=== PATIENT | female | born 1960 | race Caucasian/White ===

== ENCOUNTER → 2016-05-05 | Outpatient (CLI) | payer BC ==
--- NOTE | 2016-05-06 07:13 | CT ---
EXAMINATION TYPE: CT sinus wo con DATE OF EXAM: 05/05/2016 6:55 PM COMPARISON: NONE HISTORY: Headaches and sinus pressure x 3 months. Chronic sinusitis per order. CT DLP: 682.00 mGycm. Automated Exposure Control for Dose Reduction was Utilized. TECHNIQUE: CT scan of the sinuses is performed without contrast, axial images are obtained, coronal r eformatted images are also reviewed. FINDINGS: The paranasal sinuses including the frontal, ethmoid, sphenoid, and maxillary sinuses bila terally are well-aerated without abnormal opacification. The ostiomeatal complex is patent bilateral ly on the coronal images. Visualized portion of mastoid air cells show no abnormal opacification. The globes are intact bilate rally. Persistent anterior metopic suture is incidentally noted. Patchy soft tissue density right ex ternal auditory canal likely reflects cerumen. IMPRESSION: The paranasal sinuses are clear and the ostiomeatal complex is patent bilaterally.
== END | disposition home or self-care (01) ==
LOC: RADCTMAIN 18:33
PROVIDERS: ATTEND Family Medicine
DX: J32.9 Chronic sinusitis, unspecified (principal)
CPT/HCPCS: 70486

== ENCOUNTER → 2018-12-21 | Outpatient (CLI) | payer BC | END | disposition home or self-care (01) | LOC: LABPAT 09:07 | PROVIDERS: ATTEND Orthopaedic Surgery | DX: Z01.812 Encounter for preprocedural laboratory examination (principal) | CPT/HCPCS: 87070 ==

== ENCOUNTER 2019-01-24 05:45 | Day surgery (SDC) | payer BC ==
[2019-01-18 15:36] VITALS: BMI 33.6
--- NOTE | 2019-01-23 15:10 | HP ---
HISTORY AND PHYSICAL REASON FOR ADMISSION: Surgery is scheduled for 01/24/2019. HISTORY OF PRESENT ILLNESS: Camille Ribeiro is a 58-year-old patient seen with symptomatic right knee osteoarthritis. We discussed options for treatment. She elected to proceed with right total knee arthroplasty. Consent regarding the procedure was obtained. Medical clearance was provided by Chris Kelley. PAST MEDICAL HISTORY: Allergic rhinitis. PAST SURGICAL HISTORY: Right knee arthroscopy. DAILY MEDICATIONS: Zyrtec. ALLERGIES: NONE. SOCIAL HISTORY: She denies current tobacco use. PHYSICAL EXAMINATION: Evaluation of her right knee: Her range of motion is -2 to 95. She has a mild effusion. Tenderness medial and lateral joint lines. Crepitus along the medial, lateral, and patellofemoral compartments. Ligaments are stable. Hip rotation is without pain. Her distal neurovascular examination is intact. RADIOGRAPHS: Radiographs of the right knee revealed moderate to severe medial and lateral as well as patellofemoral compartment osteoarthritis. IMPRESSION: Right knee osteoarthritis. PLAN: Right total knee arthroplasty. MMODL / IJN: [id number] /
[~2019-01-24 05:45] MED LIST: ACETAMINOPHEN TAB 500 MG TAB PO ONE; MELOXICAM 7.5 MG TAB PO ONE; TRANEXAMIC ACID 1,000 MG in SODIUM CHLORIDE 0.9% 100 ML IVPB ONE
[2019-01-24] MEDS ORDERED: LACTATED RINGERS 1,000 ML IV SCH (05:52)
[2019-01-24] MEDS ORDERED: ONDANSETRON 4 MG/2 ML VIAL IVP PRN ×2 (05:52→09:27)
[2019-01-24] MEDS ORDERED: LIDOCAINE 1% 20 ML VIAL (10MG/ML) FOR IV START INTRADERMA ONE (07:01)
[2019-01-24] MEDS ORDERED: MIDAZOLAM 2 MG/2 ML VIAL IVP ONE (07:15)
[2019-01-24] MEDS: fentaNYL (PF) 50 MCG/ML 2 ML AMP IVP ONE ×3 (07:15→10:10)
[2019-01-24] MEDS ORDERED: KETAMINE 10 MG/ML 20 ML VIAL ONE (07:23)
[2019-01-24] MEDS ORDERED: MIDAZOLAM 2 MG/2 ML VIAL ONE (07:23)
[2019-01-24] MEDS ORDERED: PROPOFOL 10 MG/ML 20 ML VIAL IV ONE (07:23)
[2019-01-24] MEDS ORDERED: GLYCOPYRROLATE 0.2 MG/ML 2 ML VIAL ONE (07:23)
[2019-01-24] MEDS ORDERED: TRANEXAMIC ACID 1,000 MG/10 ML VIAL ONE (07:23)
[2019-01-24] MEDS ORDERED: fentaNYL (PF) 50 MCG/ML 2 ML AMP ONE (07:23)
[2019-01-24] MEDS ORDERED: HYDROmorphone (PF) 1 MG/ML ONE (07:23)
[2019-01-24] MEDS ORDERED: SODIUM CHLORIDE 0.9% 100 ML BAG ONE (07:23)
[2019-01-24] MEDS ORDERED: NEOSTIGMINE 1 MG/ML 10 ML VIAL ONE (07:23)
[2019-01-24] MEDS ORDERED: diphenhydrAMINE 50 MG/ML 1 ML VIAL ONE (07:23)
[2019-01-24] MEDS ORDERED: LIDOCAINE 1% INJ 10MG/ML (20 ML MDV) ONE (07:23)
[2019-01-24] MEDS ORDERED: ROCURONIUM BROMIDE 10 MG/ML 10 ML VIAL IV ONE (07:23)
[2019-01-24] MEDS ORDERED: SUCCINYLCHOLINE CHLORIDE 100 MG/5 ML SYR IV ONE (07:23)
[2019-01-24] MEDS ORDERED: ROPIVACAINE 0.2%-NS ON-Q PUMP 1,090 MG, EMPTY PAIN BALL 1 EACH MISCELLANE PRN (07:37)
--- NOTE | 2019-01-24 07:38 | P.ANPRN ---
Procedure Note - Anesthesia - Nerve Block Performed Right Adductor Canal Infusion Time Out Performed: Yes Date of Procedure: 01/24/19 Procedure Start Time: : Procedure Stop Time: Location of Patient Procedure: PreOp Indication: Acute Post-Operative Pain, Requested by Surgeon Specifically requested for management of pain by DrAshley: Alex Maloney Sedation Type: Sedate with meaningful contact maintained Preparation: Sterile Prep Position: Supine Catheter Depth at Skin (cm): 8 Catheter: Indwelling Needle Types: Pajunk Needle Gauge: 18 Ultrasound used to visualize needle placement: Yes Ultrasound used to observe medication spread: Yes Injectate: 0.5% Ropivacaine (see comment for volume) (20 cc) Blood Aspirated: No Pain Paresthesia on Injection Noted: No Resistance on Injection: Normal Image Stored and Saved: Yes Events: Uneventful and Well Tolerated
[2019-01-24] MEDS ORDERED: ceFAZolin 3,000 MG in SODIUM CHLORIDE 0.9% IRRIGATIO 3,000 ML IRRIGATION ONE (07:39)
[2019-01-24] MEDS: ROPIVACAINE 246.25 MG, EPINEPHrine 0.5 MG, KETOROLAC 30 MG, cloNIDine HCL/PF 80 MCG, WA... MISCELLANE ONE ×10 (08:02→08:13)
[2019-01-24] MEDS ORDERED: LACTATED RINGERS 1,000 ML IV ONE ×2 (08:45→09:27)
[2019-01-24] MEDS ORDERED: HYDROcodone/APAP 5-325MG 1 EACH TAB PO PRN ×2 (09:27)
[2019-01-24] MEDS ORDERED: NALOXONE 0.4 MG/ML 1 ML VIAL IV PRN (09:27)
[2019-01-24] MEDS ORDERED: HYDROmorphone 0.5 MG/0.5 ML SYRINGE IVP PRN ×2 (09:27)
[2019-01-24] MEDS ORDERED: HYDROmorphone 1 MG/ML 1 ML SYRINGE IVP PRN (09:27)
--- NOTE | 2019-01-24 09:27 | P.OP ---
Date of Procedure: 01/24/19 Preoperative Diagnosis: Right knee osteoarthritis Postoperative Diagnosis: Right knee osteoarthritis Procedure(s) Performed: Right total knee arthroplasty Implants: 1. Depuy attune size 6 narrow right cemented cruciate-retaining femur 2. Depuy attune size 5 right cemented tibial baseplate 3. Depuy attune size 6 fixed bearing cruciate retaining 5 mm polyethylene tibial insert 4. Depuy attune 35 mm all polyethylene cemented patella Anesthesia: GETA, regional (Adductor canal catheter) Surgeon: Alex Maloney Box Office Agent #1: Rodo Burnette Estimated Blood Loss (ml): 20 Pathology: other (Bone) Condition: stable Disposition: PACU Indications for Procedure: 58-year-old patient seen with symptomatic right knee osteoarthritis. After treatment options were discussed, she elected to proceed with total knee arthroplasty. Operative Findings: See description of procedure Description of Procedure: Patient was taken to the operative suite after having an adductor canal catheter placed by the department of anesthesia. Patient underwent a general anesthetic by the department of anesthesia. Patient was given preoperative IV intake antibiotics and TXA. A well-padded tourniquet was placed about the right lower extremity. The lower extremity was then prepped and draped in the normal sterile orthopedic fashion. The extremity was elevated, a tourniquet was insufflated to 300. A standard anterior incision was made sharply through skin. Dissection was taken down through the subcutaneous soft tissues down to the extensor mechanism. A medial arthrotomy was performed, patella was everted and knee was flexed. There was advanced osteoarthritis noted. I introduced my distal intramedullary femoral drill. I then introduced the distal femoral cutting jig. Jeremías JUAREZ secured the cutting jig with 2 pins. I held retractors in position while Jeremías JUAREZ performed the distal femoral resection through the guide area we now removed her distal femoral cutting guide. We now placed our 4-in-1 femoral cutting block and positioned and it was secured with 2 pins by Jeremías JUAREZ while I held the block in position. The distal femoral finishing was now completed. A proximal tibial cutting guide was positioned. I held the guide in the appropriate position with both hands well Jeremías JUAREZ inserted stabilizing pins into the guide. Proximal tibial cut was made. We now placed a trial femoral component into position, along with an appropriate size tibial tray and insert. We now took the knee through range of motion and had full extension good flexion and good overall soft tissue balance noted. The patella was everted and stabilized with 2 towel clips held by Jeremías JUAREZ while I performed a flush with patellar quad tendon utilizing a fresh sawblade. We templated the patella, appropriate drill holes were made. An appropriate trial patella was positioned, knee was taken through full range of motion with the patella tracking very nicely. The trial patella was removed. Drill holes were made through the femoral component. All trial components were removed after marking off the appropriate rotation of the tibia. Retractors were now positioned along the proximal tibia. An appropriate keel punch was made with the appropriate size tibial guide by myself on Jeremías JUAREZ assisted by holding retractors. At this point appropriate size implants were chosen and opened. The joint was irrigated copiously with pulse lavage mechanical irrigation. The posterior capsule was infiltrated with local analgesic. The wound was irrigated with pulse lavage mechanical irrigation. We mixed antibiotic methylmethacrylate. We placed the knee into flexion. We placed multiple retractors assisted by Jeremías JUAREZ to expose the proximal tibia. Once the methyl methacrylate was ready, the tibial component was cemented into place removing any excess methylmethacrylate form by both myself and Jeremías JUAREZ. The femoral component was cemented into place removing the removing any excess methylmethacrylate performed by both myself and Jeremías JUAREZ. We then inserted the appropriate size polyethylene tibial insert. We made sure that it was locked into position. We took the knee into full extension, and then back in a flexion making sure we had removed any excess methylmethacrylate. The patellar component was then cemented down and secured with clamp. Excess methylmethacrylate removed. We kept the knee in full extension, patellar clamp in position until methylmethacrylate had hardened. Once it had hardened the patellar clamp was removed. The knee was taken through full range of motion. The patella tracked nicely. There was good soft tissue balancing. The tourniquet was now released. Additional hemostasis was achieved via electrocautery. A second gram of TXA was given. The wound again was irrigated with pulse lavage mechanical irrigation. The superficial soft tissues were infiltrated local analgesic. The extensor mechanism was repaired with Vicryl. We checked the repair with range of motion and it was stable. The subcutaneous soft tissues were repaired with Vicryl in layers. The skin was approximated with pernio/Dermabond. Sterile dressings were applied followed by loose web roll and Johnny bandage. The patient was transferred to a bed, and taken to recovery in stable and satisfactory condition. Jeremías JUAREZ assisted with this complex procedure.
[2019-01-24] MEDS: HYDROmorphone 0.5 MG/0.5 ML SYRINGE IVP PRN ×2 (09:44→09:49)
[2019-01-24 09:51] VITALS: RESP 16; TEMP 97.6
--- NOTE | 2019-01-24 10:02 | XR ---
EXAMINATION TYPE: XR knee limited RT DATE OF EXAM: 01/24/2019 CLINICAL HISTORY: Right knee pain and arthritis status post total knee replacement. TECHNIQUE: Portable AP and crosstable lateral views of the right knee are obtained immediately posto peratively. COMPARISON: None FINDINGS: Metallic hardware from total right knee arthroplasty is seen and appears satisfactory in a lignment and position. There is evidence of recent surgery with diffuse soft tissue swelling and sub cutaneous emphysema noted. IMPRESSION: METALLIC HARDWARE FROM TOTAL RIGHT KNEE ARTHROPLASTY IS SATISFACTORY IN ALIGNMENT.
[2019-01-24] MEDS ORDERED: HYDROcodone/APAP 5-325MG 1 EACH TAB PO ONE (10:53)
[2019-01-24 14:47] VITALS: BP 104/71; PULSE 64
[2019-01-24] MEDS ORDERED: SENNOSIDES-DOCUSATE SODIUM 1 EACH TAB PO SCH (21:00)
[2019-01-25] MEDS ORDERED: MELOXICAM 7.5 MG TAB PO SCH (09:00)
== END 2019-01-24 15:19 | disposition home health service (06) ==
LOC: OR 05:45
PROVIDERS: ATTEND Orthopaedic Surgery
DX: M17.11 Unilateral primary osteoarthritis, right knee (principal); J30.9 Allergic rhinitis, unspecified; Z79.83 Long term (current) use of bisphosphonates; Z79.899 Other long term (current) drug therapy; K21.9 Gastro-esophageal reflux disease without esophagitis; F39 Unspecified mood [affective] disorder; Z79.1 Long term (current) use of non-steroidal anti-inflammatories (NSAID)
CPT/HCPCS: 27447; 97161; 64448; 84132; 88300; 73560; C1776; C1713; J2250; J0171; J1200; J2710; J0690 ×2; J2405; J2001; J3010; J1885; J1170 ×2; J2795 ×2; J0330; J2704; J0735

== ENCOUNTER 2021-10-24 09:23 | Emergency (ER) | payer BC ==
[2021-10-24 09:27] VITALS: BP 143/82; PULSE 51; RESP 16; TEMP 97.8
[2021-10-24] MEDS ORDERED: Acetaminophen-Codeine 300-30mg TAB PO STA (09:34)
--- NOTE | 2021-10-24 09:37 | ED ---
General Adult HPI - General Chief complaint: Fall Stated complaint: wrist injury Time Seen by Provider: 10/24/21 09:30 Source: patient, family, RN notes reviewed, old records reviewed Mode of arrival: ambulatory Limitations: no limitations - History of Present Illness Initial comments: This is a well-appearing 61-year-old female that presents ambulatory with her to the emergency room after a trip and fall yesterday on an outstretched right hand. She is complaining of increased pain and swelling this morning. She did take Motrin and hour before arrival. She describes the pain as throbbing. She does have full range of motion. She did not hit her head or lose consciousness. No other injuries. -: days(s) (1) Location: right, upper extremity (wrist) Radiation: non-radiation Severity scale (1-10): 8 Quality: constant, other (Throbbing) Consistency: constant Improves with: cold therapy, immobilization Associated Symptoms: denies other symptoms - Related Data Home Medications Medication Instructions Recorded Confirmed Cetirizine HCl/Pseudoephedrine 1 each PO DAILY 01/18/19 01/24/19 [Zyrtec-D Tablet] Cranberry Fruit Extract [Cranberry] 500 mg PO DAILY 01/18/19 01/18/19 FLUoxetine HCL [Sarafem] 20 mg PO QAM 01/18/19 01/18/19 Ibuprofen 800 mg PO TID PRN 01/18/19 01/18/19 Omeprazole [PriLOSEC] 20 mg PO AC-BRKFST 01/18/19 01/18/19 Turmeric Root Extract [Turmeric] 500 mg PO DAILY 01/18/19 01/18/19 Previous Rx's Medication Instructions Recorded Aspirin [Adult Low Dose Aspirin EC] 81 mg PO BID #60 tablet. 01/24/19 HYDROcodone/APAP 7.5-325MG [[place] 1 - 2 each PO Q6HR PRN #56 tab 01/24/19 7.5] traMADol HCl [Ultram] 50 mg PO Q6H PRN #28 tab 01/24/19 Ibuprofen [Motrin] 600 mg PO Q8HR PRN #30 tab 10/24/21 Allergies Allergy/AdvReac Type Severity Reaction Status Date / Time No Known Allergies Allergy Verified 10/24/21 09:27 Review of Systems ROS Statement: Those systems with pertinent positive or pertinent negative responses have been documented in the HPI. ROS Other: All systems not noted in ROS Statement are negative. Past Medical History Past Medical History: GERD/Reflux History of Any Multi-Drug Resistant Organisms: None Reported Past Surgical History: Orthopedic Surgery Additional Past Surgical History / Comment(s): knee replacement Past Psychological History: Depression Smoking Status: Never smoker Past Alcohol Use History: None Reported Past Drug Use History: None Reported General Exam Limitations: no limitations General appearance: alert, in no apparent distress Head exam: Present: atraumatic, normocephalic Eye exam: Absent: scleral icterus, conjunctival injection, periorbital swelling Neck exam: Absent: tenderness, meningismus Respiratory exam: Absent: respiratory distress, accessory muscle use Cardiovascular Exam: Present: bradycardia Extremities exam: Present: normal capillary refill Right Shoulder Exam: Present: full ROM. Absent: tenderness Upper Arm exam: Present: full ROM. Absent: tenderness Elbow exam: Present: full ROM. Absent: tenderness Forearm Wrist exam: Present: full ROM, tenderness, swelling, ecchymosis. Absent: abrasion, laceration, erythema, tenderness over anatomical snuff box, pain with axial thumb loading Hand Wrist exam: Present: full ROM Neuro motor exam: Present: wrist extension intact, thumb opposition intact, thumb IP flexion intact, thumb adduction intact, fingers 2-5 abduction intact Neurosensory exam: Present: radial nerve intact, ulnar nerve intact, median nerve intact Vascular: Present: normal capillary refill, radial pulse. Absent: vascular compromise Neurological exam: Present: alert, oriented X3, normal gait Psychiatric exam: Present: normal affect, normal mood Skin exam: Present: warm, dry, normal color. Absent: cyanosis, diaphoretic Course Vital Signs 10/24/21 09:25 Temperature 97.8 F Pulse Rate 51 L Respiratory 16 Rate Blood Pressure 143/82 O2 Sat by Pulse 100 Oximetry Procedures - Orthopedic Splinting/Casting Injury #1 Side: right Upper Extremity Injury Location: short arm Upper Extremity Immobilizer: volar splint, synthetic pre-padded splint Medical Decision Making - Medical Decision Making X-ray of the right wrist shows a distal radial fracture with suspected intra-art icular extension and shortening. There is a suspected nondisplaced right ulnar styloid process fracture. There is moderate to severe osteoarthrosis of the first metacarpal carpal joint There is no scaphoid pain on exam. Patient was placed in a short arm volar splint. She is neurovascularly intact prior to and post-splinting. She was instructed on splint care and directed to watch for any skin breakdown. She was referred to orthopedics and given Motrin for pain and a Tylenol # 3 starter pack. Patient states that she does see Dr. Maloney for orthopedic care and wishes to follow up with him. Patient's questions were answered. Case discussed with Dr. Horta. Disposition Clinical Impression: Wrist fracture, right, Fall Disposition: HOME SELF-CARE Condition: Good Instructions (If sedation given, give patient instructions): Wrist Fracture in Adults (ED), Fall Prevention (ED) Additional Instructions: Rest, ice, elevate and wear splint as applied. Take Motrin and Tylenol 3 as needed for pain. Follow-up with orthopedics this week. Return to the emergency room with any new or concerning symptoms including increased pain, numbness or pallor. Prescriptions: Ibuprofen [Motrin] 600 mg PO Q8HR PRN #30 tab PRN Reason: Pain Is patient prescribed a controlled substance at d/c from ED?: No Referrals: Chris Kelley MD [Primary Care Provider] - 1-2 days Alex Maloney DO [Doctor of Osteopathic Medicine] - 1-2 days Time of Disposition: 10:41
--- NOTE | 2021-10-24 10:02 | XR ---
EXAMINATION TYPE: XR wrist complete RT DATE OF EXAM: 10/24/2021 9:53 AM INDICATION: Patient age:Female; 61 years old; Reason for study: fall pain; COMPARISON: None TECHNIQUE: 4 views of the right wrist. Frontal, navicular, lateral, and oblique. FINDINGS: Distal right radius fracture with shortening and suspected nondisplaced ulnar styloid proce ss fracture. There is intra-articular extension of the distal radius fracture. Osteoarthrosis changes most pronounced at the first digit carpometacarpal joint. IMPRESSION: 1. Distal right radius fracture with suspected intra-articular extension and shortening. 2. Suspected nondisplaced right ulnar styloid process fracture. 3. Moderate to severe osteoarthrosis of the first metacarpal carpal joint
[2021-10-24] MEDS ORDERED: ACET/COD 300 MG/30 MG STARTER PACK 6 TAB BTL PO STA (10:41)
== END 2021-10-24 10:51 | disposition home or self-care (01) ==
LOC: EC 09:23
DX: S52.501A Unspecified fracture of the lower end of right radius, initial encounter for closed fracture (principal); K21.9 Gastro-esophageal reflux disease without esophagitis; Z79.899 Other long term (current) drug therapy; W01.0XXA Fall on same level from slipping, tripping and stumbling without subsequent striking against object, initial encounter
CPT/HCPCS: 29125; 99283

== ENCOUNTER → 2021-11-02 | Outpatient (CLI) | payer BC ==
[2021-11-02 23:16] LABS: Basophils # (A) 0.05 X 10*3/uL (0.00-0.10); Basophils % (A) 0.7 %; Eosinophils # (A) 0.13 X 10*3/uL (0.04-0.35); Eosinophils % (A) 1.7 %; HGB 12.5 g/dL (12.0-15.0); Immature Grans, Automated 0.3 %; Lymphocytes # (A) 1.44 X 10*3/uL (0.90-5.00); Lymphocytes % (A) 19.1 %; MCH 33.2 pg (27.0-32.0); MCHC 33.8 g/dL (32.0-37.0); MCV 98.1 fL (80.0-97.0); Mean Platelet Volume 10.3 fL (9.5-12.2); Monocytes % (A) 5.3 %; NRBC Per 100 WBC 0 /100 WBCS (0.0-0.0); Neutrophils # (A) 5.51 X 10*3/uL (1.80-7.70); Neutrophils % (A) 72.9 %; Platelet Count 429 X 10*3/uL (140-440); RBC 3.77 X 10*6/uL (4.10-5.20); WBC 7.55 X 10*3/uL (4.50-10.00)
== END | disposition home or self-care (01) ==
LOC: LABPAT 14:41
PROVIDERS: ATTEND Orthopaedic Surgery Hand Surgery
DX: Z01.818 Encounter for other preprocedural examination (principal); S52.571A Other intraarticular fracture of lower end of right radius, initial encounter for closed fracture; X58.XXXA Exposure to other specified factors, initial encounter
CPT/HCPCS: 85025; 93005

== ENCOUNTER → 2022-08-05 | Outpatient (CLI) | payer BC ==
[2022-08-05 10:48] LABS: Basophils # (A) 0.04 X 10*3/uL (0.00-0.10); Basophils % (A) 0.8 %; Eosinophils # (A) 0.26 X 10*3/uL (0.04-0.35); HCT 36.4 % (37.2-46.3); HGB 11.8 g/dL (12.0-15.0); Immature Grans, Automated 0.6 %; Lymphocytes # (A) 1.12 X 10*3/uL (0.90-5.00); Lymphocytes % (A) 21.6 %; MCH 32.8 pg (27.0-32.0); MCHC 32.4 g/dL (32.0-37.0); MCV 101.1 fL (80.0-97.0); Mean Platelet Volume 10.4 fL (9.5-12.2); Monocytes # (A) 0.29 X 10*3/uL (0.20-1.00); Monocytes % (A) 5.6 %; NRBC Per 100 WBC 0 /100 WBCS (0.0-0.0); Neutrophils # (A) 3.45 X 10*3/uL (1.80-7.70); Neutrophils % (A) 66.4 %; Platelet Count 383 X 10*3/uL (140-440); RDW 12.9 % (11.5-14.5); WBC 5.19 X 10*3/uL (4.50-10.00)
[2022-08-05 11:15] LABS: ALT 17 U/L (8-44); AST 19 U/L (13-35); African American GFR (CKD) 101.8 (60.0-200.0); Albumin 4.6 g/dL (3.8-4.9); Albumin/Globulin Ratio 2.23 (1.60-3.17); Alkaline Phosphatase 76 U/L (41-126); Blood Urea Nitrogen 12.9 mg/dL (9.0-27.0); Calcium 9.6 mg/dL (8.7-10.3); Carbon Dioxide 27.5 mmol/L (20.0-27.5); Chloride 100 mmol/L (96-109); Glucose 89 mg/dL (70-110); LDL Cholesterol,Calculated 129.4 mg/dL (0.0-131.0); Non-African American GFR(CKD) 87.8 (60.0-200.0); Potassium 4.5 mmol/L (3.5-5.5); Sodium 138 mmol/L (135-145); Total Protein 6.6 g/dL (6.2-8.2); VLDL Calculation 14.88 mg/dL (5.00-40.00)
== END | disposition home or self-care (01) ==
LOC: LABWHC1 07:11
PROVIDERS: ATTEND Family Medicine
DX: J30.1 Allergic rhinitis due to pollen (principal); J98.8 Other specified respiratory disorders; Z96.659 Presence of unspecified artificial knee joint
CPT/HCPCS: 36415; 80053; 80061; 84439; 84443; 85025

== ENCOUNTER → 2022-11-01 | Outpatient (CLI) | payer BC ==
--- NOTE | 2022-11-02 21:04 | CT ---
EXAMINATION TYPE: CT sinus wo con DATE OF EXAM: 11/01/2022 COMPARISON: 05/05/2016 HISTORY: Chronic maxillary sinusitis CT DLP: 459.10 mGycm CONTRAST: 0 mL of Isovue 300 The paranasal sinuses are examined in the axial plane at 2 mm thick sections. Reconstructed images i n the coronal plane were obtained. The maxillary sinuses are clear. The ethmoid air cells are clear. The sphenoid sinuses are clear. The frontal sinuses are clear. Bilateral chad bullosa are present. The septum is evaluated. There is septal deviation to the right. The ostiomeatal units are patent. IMPRESSIONS: 1. No suspicious changes for acute or chronic sinusitis. 2. Right septal deviation
== END | disposition home or self-care (01) ==
LOC: RADCTMAIN 16:20
PROVIDERS: ATTEND Otolaryngology
DX: J32.0 Chronic maxillary sinusitis (principal); J34.2 Deviated nasal septum
CPT/HCPCS: 70486

== ENCOUNTER 2023-02-15 09:40 | Day surgery (SDC) | payer BC ==
[2023-02-07 16:08] VITALS: BMI 31.8
--- NOTE | 2023-02-13 13:18 | P.HPOR ---
History of Present Illness H&P Date: 02/13/23 Subjective: This is a 62 year old female that presents today for follow up evaluation regarding a several year history of progressively worsening right base of the thumb arthritis. 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 She underwent a right distal radius open reduction internal fixation one year prior and is doing well and has no pain in the wrist. She has undergone thumb CMC steroid injections with little relief of her symptoms. She denies any recent injury or inciting event. Physical Examination: RUE: AIN/PIN/Radial/Ulnar/Median motor intact. Radial/Ulnar/Median SILT. 2+/4 Radial/Ulnar pulses palpated. 5/5 APB, 5/5 FDI. Negative Finkelsteins, Positive CMC grind, negative Durkan's compression. Imaging: X-Rays of the right wrist 3 view reviewed from x-rays taken in July of 2022 demonstrate severe degenerative changes of the thumb CMC joint. Impression: 1.) Right thumb CMC arthritis, severe. Plan: Diagnosis and treatment options were discussed with the patient. She has failed conservative treatment for her right thumb CMC arthritis. Her symptoms are interfering with her job and daily activities. She would like to go forward with a right thumb CMC basilar joint arthroplasty. Risks and benefits of surgery including bleeding, infection, damage to surrounding tissue, need for further s urgery, residual numbness were discussed and the patient wished to go forward with surgery. 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 The patient was agreeable with this plan. CC: Chris Kelley MD -Jim Oden DO Orthopedic Hand/Upper Extremity Surgeon Past Medical History Past Medical History: GERD/Reflux, Osteoarthritis (OA) Additional Past Medical History / Comment(s): environmental allergies- receives allergy shots ., History of Any Multi-Drug Resistant Organisms: None Reported Past Surgical History: Appendectomy, Joint Replacement, Tonsillectomy Additional Past Surgical History / Comment(s): RT knee replacement, right wrist fx with surgery. COLONOSCOPY Past Anesthesia/Blood Transfusion Reactions: Previous Problems w/ Anesthesia, Postoperative Nausea & Vomiting (PONV) Past Psychological History: No Psychological Hx Reported Smoking Status: Never smoker Past Alcohol Use History: Rare Past Drug Use History: None Reported - Past Family History Mother Family Medical History: Cancer Brother(s) Family Medical History: Cancer Additional Family Medical History / Comment(s): back and lung cancer Medications and Allergies Home Medications Medication Instructions Recorded Confirmed Type Cetirizine HCl/Pseudoephedrine 1 each PO DAILY 01/18/19 02/07/23 History [Zyrtec-D Tablet] Ibuprofen 800 mg PO TID PRN 01/18/19 02/07/23 History Omeprazole [PriLOSEC] 20 mg PO AC-BRKFST 01/18/19 02/07/23 History Montelukast [Singulair] 10 mg PO HS 11/02/21 02/07/23 History Ascorbic Acid [Vitamin C] 1,000 mg PO BID 02/07/23 02/07/23 History Cholecalciferol [Vitamin D3 (25 25 mcg PO DAILY 02/07/23 02/07/23 History Mcg = 1000 Iu)] Cranberry Fruit Extract [Cranberry] 500 mg PO DAILY 02/07/23 02/07/23 History Turmeric Root Extract [Turmeric] 500 mg PO DAILY 02/07/23 02/07/23 History Allergies Allergy/AdvReac Type Severity Reaction Status Date / Time No Known Allergies Allergy Verified 02/07/23 15:14 Physical Examination Osteopathic Statement: *. No significant issues noted on an osteopathic structural exam other than those noted in the History and Physical/Consult.
[~2023-02-15 09:40] MED LIST changes: -ACETAMINOPHEN TAB 500 MG TAB PO ONE; +DEXAMETHASONE SOD PHOSPHATE 4 MG/ML 1 ML VIAL IV ONE; +HYDROmorphone 0.5 MG/0.5 ML SYRINGE IVP PRN; +LACTATED RINGERS 1,000 ML IV SCH; +LIDOCAINE 1% (10MG/ML) FOR IV START INTRADERMA PRN; -MELOXICAM 7.5 MG TAB PO ONE; +ONDANSETRON 4 MG/2 ML VIAL IVP ONE; -TRANEXAMIC ACID 1,000 MG in SODIUM CHLORIDE 0.9% 100 ML IVPB ONE; +droPERidol 5 MG/2 ML VIAL IVP ONE
[2023-02-15] MEDS ORDERED: MIDAZOLAM 2 MG/2 ML VIAL IVP ONE (10:20)
[2023-02-15 10:37] VITALS: TEMP 97.3
--- NOTE | 2023-02-15 12:05 | P.OP ---
Date of Procedure: 02/15/23 Preoperative Diagnosis: Right thumb CMC arthritis Postoperative Diagnosis: Right thumb CMC arthritis Procedure(s) Performed: Right thumb CMC basilar joint arthroplasty Implants: Arthrex 3.5mm Swivel Lock Suture anchor x2 Anesthesia: MAC, regional Surgeon: Jim Oden Orthopedic Physician Assistant #1: Minh Barker Estimated Blood Loss (ml): 5 Pathology: none sent Condition: stable Disposition: PACU Description of Procedure: This is a 62 year old female who presents today for a right thumb CMC basal joint arthroplasty after having failed conservative treatment for severe thumb CMC arthritis. Risks and benefits of surgery were discussed with the patient including bleeding, damage to surrounding tissue, infection, need for further surgery as well as risks of anesthesia including pulmonary embolism and even and the patient wished to proceed with surgical intervention. The patients was seen in the pre-operative area by myself. Consent and H&P were completed and updated. The correct extremity was marked in the pre-operative area by myself and all other questions were answered. Patient received a upper extremity nerve block by the department of anesthesia. He then was brought to the operating room by the department of anesthesia. They remained on the portable stretcher and a rolling hand table was brought to the side of the operative extremity. The patient was then drifted off to sleep by the department of anesthesia. A nonsterile tourniquet was then applied to the operative extremity and the right upper extremity was then prepped and draped in normal sterile fashion. Pre-operative time out was performed indicating the cor rect patient, procedure and laterality. All in the room agreed. Pre-operative antibiotics were given prior to skin incision. The operative extremity was the exsanguinated with an esmarch bandage and the tourniquet was inflated to 250mmHg. Longitudinal incision was made over the left thumb CMC joint with a 15 blade scalpel. Blunt dissection was taken down to subcutaneous tissues with littler s cissors taking care to preserve the branches of the superficial radial nerve. Dorsal radial artery was identified proximally in the incision and protected throughout the procedure. Scalpel was then made to incise the thumb CMC joint creating full thickness flaps off of the proximal metacarpal base and trapezium, this plane was further developed with a periosteal elevator. Elevator was then utilized to identify the thumb CMC joint and scaphotrapezial joint. McGlamory elevator was then used to excise the trapezium whole. Guidewire was then introduced down to the laser line at the base of the first metacarpal through the same incision and was over drilled. Another guidewire was then inserted at the radial base of the first metacarpal near the Insertion of APL and was then over drilled with normal drill guide. A 3.5mm Arthrex SwiveLock anchor was then inserted into the base of the first metacarpal. While holding the thumb in slight traction and full adduction, another 3.5mm Arthrex SwiveLock anchor was inserted into the base of the second metacarpal and the two strands of fibertape were centered across the first metacarpal base to create a sling around the base suspending the thumb metacarpal, good graciela purchase was appreciated. The thumb was successfully suspended and full ROM was achieved passively. Suture ends were cut and skin was closed with several interrupted 4-0 Monocryl sutures followed by a running 4-0 Monocryl stitch. Sterile dressing consisting of mastisol and steri strips followed by 4x4s cast padding, and a thumb spica plaster splint was applied. Tourniquet was let down and the hand had brisk cap refill and normal perfusion immediately. The patient was then woken by the department of anesthesia and transferred to PACU in stable condition. Minh JUAREZ was present for the case and assisted in major portions of procedure and protection of vital neurovascular structures. Jim Oden D.O. Orthopedic Hand/Upper Extremity Surgeon
[2023-02-15 12:38] VITALS: BP 133/84; PULSE 77; RESP 16
--- NOTE | 2023-02-16 13:48 | P.ANPRN ---
Procedure Note - Anesthesia - Nerve Block Performed Right Supraclavicular Single Time Out Performed: Yes Date of Procedure: 02/15/23 Procedure Start Time: Procedure Stop Time: Location of Patient: PreOp Indication: Acute Post-Operative Pain, Requested by Surgeon Sedation Type: Sedate with meaningful contact maintained Preparation: Sterile Prep Position: Supine Needle Types: Pajunk Needle Gauge: 21 Ultrasound used to observe medication spread: Yes Blood Aspirated: No Pain Paresthesia on Injection Noted: No Resistance on Injection: Normal Image Stored and Saved: Yes Events: Uneventful and Well Tolerated (ropi .5% 20cc plus dexamethasone 4mg)
== END 2023-02-15 13:04 | disposition home or self-care (01) ==
LOC: OR 09:40
PROVIDERS: ATTEND Orthopaedic Surgery Hand Surgery
DX: M18.11 Unilateral primary osteoarthritis of first carpometacarpal joint, right hand (principal); K21.9 Gastro-esophageal reflux disease without esophagitis; F10.90 Alcohol use, unspecified, uncomplicated; Z79.899 Other long term (current) drug therapy
CPT/HCPCS: 64415; 25447; C1713; J2250; J1100; J0690; J2405

== ENCOUNTER → 2023-11-30 | Outpatient (CLI) | payer MEDICARE ==
--- NOTE | 2023-11-30 11:27 | US ---
EXAMINATION TYPE: US abdomen complete DATE OF EXAM: 11/30/2023 COMPARISON: NONE CLINICAL INDICATION: Female, 63 years old with history of R10.9 ABD PAIN; Left sided pain pain x 2 we eks, recent UTI. TECHNIQUE: Multiple sonographic images of the abdomen are obtained. FINDINGS: EXAM MEASUREMENTS: Liver Length: 11.5 cm Gallbladder Wall: 0.2 cm CBD: 0.3 cm Spleen: 8.0 cm Right Kidney: 9.0 x 4.7 x 3.8 cm Left Kidney: 10.3 x 5.1 x 5.0 cm [employer] DEPARTMENT NOTES: Pancreas: wnl Liver: wnl Gallbladder: wnl Evidence for sonographic Castro's sign: No CBD: wnl Spleen: wnl Right Kidney: wnl Left Kidney: wnl Upper IVC: wnl Abd Aorta: wnl The liver is homogenous. The intrahepatic portion of the IVC and proximal abdominal aorta are within normal limits. There is no evidence of cholelithiasis. Common bile duct is unremarkable. The visu alized portions of the pancreas are homogenous. The spleen is unremarkable. Kidneys are symmetric a nd free of hydronephrosis. There is cortical lobulation of the left kidney.. IMPRESSION: No acute process. There is cortical lobulation of left kidney. Consider follow-up CT of the abdomen i f there is concern for chronic medical renal disease.
== END | disposition home or self-care (01) ==
LOC: RADUSWWP 06:51
PROVIDERS: ATTEND Family Medicine
DX: Q63.1 Lobulated, fused and horseshoe kidney (principal)
CPT/HCPCS: 76700

== ENCOUNTER → 2024-03-08 | Outpatient (CLI) | payer MEDICARE ==
--- NOTE | 2024-03-08 15:18 | MR ---
EXAMINATION TYPE: MR lumbar spine wo con DATE OF EXAM: 03/08/2024 11:36 AM COMPARISON: 01/07/2024 and 524. CLINICAL INDICATION: Female, 63 years old with history of M47.816 SPONDYLS W/O MYELOPATHY OR R M54.16 ,M54.50; PHH, LBP with radiculopathy down left leg. TECHNIQUE: Multi planar, multi sequence imaging was performed utilizing: T1-weighted, T2-weighted, a nd turbo inversion recovery imaging of the lumbar spine. IV Contrast: mL (None, if empty) FINDINGS: Alignment: The lumbar vertebral bodies have preserved heights with grade 1 anterolisthesis of L4 on L 5. Cord: The conus medullaris and the distal spinal cord appear unremarkable with regards to their signa l intensity and morphology. Bones/Discs: Mild degeneration changes throughout the spine with osteophyte formation and facet joint arthropathy. Multilevel disc desiccation is present. No abnormal inversion recovery signal to sugges t bony edema. T12-L1: No evidence of significant spinal canal stenosis or neural foraminal stenosis. L1-L2: No evidence of significant spinal canal stenosis or neural foraminal stenosis. L2-L3: Disc bulge and facet joint arthropathy result in mild spinal canal and mild bilateral neural f oraminal stenosis. L3-L4: No evidence of significant spinal canal stenosis or neural foraminal stenosis. L4-L5: No evidence of significant spinal canal stenosis or neural foraminal stenosis. L5-S1: The disc has a rounded posterior morphology without significant spinal canal stenosis. Facet j oint arthropathy with mild bilateral neural foraminal stenosis. No significant spinal canal or neural foraminal stenosis in the remainder of the visualized levels. Other findings: Perineural cysts at the level of S1-S2 measuring 10 mm on the right. IMPRESSION: 1. No definitive evidence of disc herniation or significant spinal canal stenosis. 2. Mild disc degeneration with associated osteoarthritic changes. 3. Grade 1 anterolisthesis of L4 and L5. No evidence for spondylolysis. [facility], , 03/08/2024 3:15 PM
== END | disposition home or self-care (01) ==
LOC: RADMRIMAIN 10:56
PROVIDERS: ATTEND Orthopaedic Surgery
DX: M51.16 Intervertebral disc disorders with radiculopathy, lumbar region (principal); M47.26 Other spondylosis with radiculopathy, lumbar region; M43.16 Spondylolisthesis, lumbar region
CPT/HCPCS: 72148

== ENCOUNTER 2024-05-21 07:17 | Day surgery (SDC) | payer MEDICARE ==
[2024-05-17 14:06] VITALS: BMI 31.8
[~2024-05-21 07:17] MED LIST changes: -DEXAMETHASONE SOD PHOSPHATE 4 MG/ML 1 ML VIAL IV ONE; -HYDROmorphone 0.5 MG/0.5 ML SYRINGE IVP PRN; -LIDOCAINE 1% (10MG/ML) FOR IV START INTRADERMA PRN; -ONDANSETRON 4 MG/2 ML VIAL IVP ONE; -droPERidol 5 MG/2 ML VIAL IVP ONE
[2024-05-21 07:39] VITALS: TEMP 98.1
[2024-05-21] MEDS ORDERED: methylPREDNISolone ACETATE 80 MG/ML 1 ML VIAL ONE (08:19)
[2024-05-21] MEDS ORDERED: IOPAMIDOL M300 15ML VIAL ONE (08:19)
--- NOTE | 2024-05-21 08:41 | P.PCN ---
Description of Procedure: PREOPERATIVE DIAGNOSIS: 1- Lumbar Degenerative Disc Diseases 2-Lumbar spondylosis with Facet arthropathy without myelopathy. 3-lumbar spinal stenosis POSTOPERATIVE DIAGNOSIS: 1-lumbar degenerative disc disease. 2-lumbar spondylosis with facet arthropathy without myelopathy. 3-lumbar spinal stenosis. PROCEDURE Injection of radio contrast material into L4-5 interspace, interpretation of epidurogram, injection of steroid at L4- 5 epidural space under fluoroscopic guidance. ANESTHESIA: Lidocaine 1% subcutaneously. In OR continuous pulse ox, EKG, blood pressure and verbal communication was maintained with the patient. EBL: Minimal PROCEDURE INDICATION: Before the procedure were discussed with the patient detailed procedure, alternatives, complications including infection, bleeding, nerve damage, paralysis all of which could be permanent. Patient understands and all questions were answered. PROCEDURE DESCRIPTION : After getting consent, patient in OR in prone position. Back was prepped with chlorhexidine and draped in sterile fashion. After injecting 10 mL of 1% lidocaine subcutaneously, a 20-gauge Tuohy needle was introduced at L4 5 interspace with loss of resistance technique using a syringe filled with air. Negative CSF, negative blood, negative paresthesia. Needle position was confirmed with AP and lateral view of the fluoroscope. After repeat negative aspiration 2 mL of Omnipaque 200 water soluble contrast was injected. Contrast was noted in the epidural space. No contrast was noted into intrathecal or intravascular space. After repeat negative aspiration 6 mL solution was injected intermittently which consists of 5 mL of preservative-free normal saline mixed with 1 mL of 80 mg Depo-Medrol. Needle was withdrawn intact. Skin was cleansed and Band-Aids was applied. DISPOSITION / PLANS: The patient tolerated the procedure well. No complication. The patient was placed in a supine position and transferred to the recovery area in a stable condition for observation. There was no evidence of lower extremity motor or sensory deficit after the procedure. Patient was discharged from the recovery room after meeting discharge criteria. Home discharge instructions were given to the patient by the staff. The patient was reexamined prior to discharge. The patient will schedule a follow up in the clinic in 2-4 weeks.
--- NOTE | 2024-05-21 08:41 | FL ---
EXAMINATION TYPE: FL guided pain mgmt statistic Intraoperative/procedural fluoroscopic services were provided. CLINICAL INDICATION:Female, 63 years old with history of LESI; , PHH FINDINGS: Fluoroscopic images from lumbar epidural steroid injection demonstrated without radiographic evidence for complication. Total fluoroscopy time is 13.7 seconds. DAP: [id number] mGym2 Please see the operative/procedural note for further details. [facility], , 05/21/2024 8:39 AM
[2024-05-21 09:01] VITALS: BP 127/71; PULSE 81; RESP 18
== END 2024-05-21 09:13 | disposition home or self-care (01) ==
LOC: ORPAIN 07:17
PROVIDERS: ATTEND Pain Medicine Interventional Pain Medicine
DX: M54.16 Radiculopathy, lumbar region (principal); M47.816 Spondylosis without myelopathy or radiculopathy, lumbar region; M48.061 Spinal stenosis, lumbar region without neurogenic claudication; M51.369 Other intervertebral disc degeneration, lumbar region without mention of lumbar back pain or lower extremity pain
CPT/HCPCS: 62323; Q9967; J1010

== ENCOUNTER → 2024-06-05 | Outpatient (CLI) | payer MEDICARE ==
[2024-06-05 08:32] VITALS: BP 121/83; PULSE 79; RESP 16; TEMP 97.3
--- NOTE | 2024-06-05 15:46 | P.PAINPG ---
PQRS Measure Charge Sheet Comment: HISTORY OF PRESENT ILLNESS: A 63 yr old female w at side presents today w severe and chronic LBP> 1 yr secondary to radiculopathy, spondylosis and facet arthropathy without myelopathy for evaluation s/p RAMESH L4-L5 #1. Pt states she experienced 25 % pain relief x 2 wks s/p procedure. Pt states pain level is provoked at 6 /10 in intensity, constant, localized in the lumbar spine, predominantly axial, achy in character without shooting pain. Pain is provoked by standing/ walking for periods > 15 min. Pain is alleviated by PT x 6 wks which ended in Feb 2024, physician guided home exercises 4-5 times weekly since Feb 2024, medications, heat, ice, repositioning and rest . Interventional procedures include RAMESH L4-L5 x1 (Apr 2024), L Knee Injections Medifcations include Tramadol, Ibu REVIEW OF ORGAN SYSTEMS: CONSTITUTIONAL: No fevers or chills. No recent weight loss. NEUROLOGICAL: + numbness and tingling along the distal extremities. No seizure disorders or headaches. MUSCULOSKELETAL: + pain PSYCHIATRIC: Denies current depression or suicidal thoughts. Physical Examinations : Constitutional : Cooperative , not in acute distress . Neurologic : Cranial nerve II to XII intact. No focal neurological deficits. Psychiatric : alert & oriented x 3. Matching mood & appropriate affect. Judgment & insight intact. Musculoskeletal : Cervical Spine Motor strength in the deltoid and biceps: Normal right side. Normal Left side Motor strength biceps and the wrist extensors: Normal right side . Normal left side Motor strength in the triceps muscle: Normal right side. Normal left side Deep tendon reflexes: Normal at the biceps. Normal at Brachioradialis. Normal at triceps Vertebral body tenderness to deep palpation over Cervical facet loading test: positive bilaterally Spurling test: positive bilaterally Neck distraction test: positive bilaterally Any sign: positive bilaterally Lumbar spine Motor strength lower extremities ,thigh and legs 5/5 Right side , 5/5 Left side Deep tendon reflexes : Normal Knee Jerk. Normal Ankle Jerk Vertebral body tenderness over L4 Hammond Test positive Lumbar facet Loading Test: positive Right / positive Left L4-L5/ L5-S1 Range of motion of the lumbar spine Flexion 30 degrees, extension 10 degrees Straight Leg Raise test: Left/ Right positive at < 35 degrees Jw test: positive right / positive left. Severe tenderness over the Sacroiliac joint on the Right / Left sides Gaenslen test: positive bilaterally Seated flexion test: positive bilaterally. Sacral spine : Severe tenderness over the Sacroiliac joint: right side / left side Range of motion: Flexion of the lumbar spine <60 degrees Range of motion: Extension of the lumbar spine <20 degrees Gaenslen's Test positive Jw test: positive right side / left side Thigh Thrust Test Sacral Thrust Test Imaging: MRI non contrast lumbar spine from 03/08/24 reviewed Assessment/ Plan : L4-L4 anterolisthesis Recommendation of BL MBB L4-L5/ L5-S1 #1. Risks, benefits of procedure discussed and patient verbalized understanding. Admits to anti- coagulant use or medical history of diabetes. Protocol for discontinuation/ continuation of medications oswald procedure discussed. Minimal anesthesia including Fentanyl and Versed if clinically indicated. All questions answered. I have spent greater than 30 minutes on patient care today. Dr Loera was available by phone for the evaluation of this patient. The time was used to review the medical records including relevant urine studies and Prescription history (MAPs), review of the available imaging, evaluation and examination of the patient, coordination of care with the medical staff and if applicable referring physicians, as well as creation of the medical record PQRS Narrative: Hx Alcohol Use (MH) No Home Medications: Ambulatory Orders Cetirizine HCl/Pseudoephedrine [Zyrtec-D Tablet] 1 each PO DAILY 01/18/19 Ibuprofen 800 mg PO TID PRN 01/18/19 Omeprazole [PriLOSEC] 20 mg PO AC-BRKFST 01/18/19 Montelukast [Singulair] 10 mg PO HS 11/02/21 Ascorbic Acid [Vitamin C] 1,000 mg PO BID 02/07/23 Cholecalciferol [Vitamin D3 (25 Mcg = 1000 Iu)] 25 mcg PO DAILY 02/07/23 Cranberry Fruit Extract [Cranberry] 500 mg PO DAILY 02/07/23 Turmeric Root Extract [Turmeric] 500 mg PO DAILY 02/07/23 diazePAM [Valium] 5 mg PO ONCE 05/21/24 Controlled Substance Measures - Controlled Substance Measures Is patient prescribed a controlled substance at discharge?: No
== END ==
LOC: PNWHC3 08:14
PROVIDERS: ATTEND Specialist
DX: M43.16 Spondylolisthesis, lumbar region (principal)
CPT/HCPCS: 99211

== ENCOUNTER 2024-06-25 05:57 | Day surgery (SDC) | payer MEDICARE ==
[2024-06-21 14:59] VITALS: BMI 31.8
[2024-06-25 06:38] VITALS: TEMP 98.2
[2024-06-25] MEDS: IV FLUID CONTINUATION 1,000 ML IV ONE ×4 (06:44→07:46)
[2024-06-25] MEDS: LACTATED RINGERS 1,000 ML IV SCH (06:45)
[2024-06-25] MEDS ORDERED: fentaNYL (PF) 50 MCG/ML 2 ML AMP ONE (07:03)
[2024-06-25] MEDS ORDERED: MIDAZOLAM 2 MG/2 ML VIAL ONE (07:03)
[2024-06-25] MEDS ORDERED: ROPIVACAINE 5MG/ML 20ML VIAL ONE (07:03)
[2024-06-25] MEDS ORDERED: ONDANSETRON 4 MG/2 ML VIAL ONE (07:03)
--- NOTE | 2024-06-25 07:20 | P.PCN ---
Date of Procedure: 06/25/24 Procedure(s) Performed: PREOPERATIVE DIAGNOSIS : 1- Lumbar spondylosis with Facet Arthropathy with out myelopathy . 2- Lumber degenerative disc disease POSTOPERATIVE DIAGNOSIS: 1- Lumbar spondylosis with Facet Arthropathy without myelopathy . 2- Lumber degenerative disc disease PROCEDURE: Diagnostic bilateral L3 ,L4 , L5 medial branch block under fluoroscopy guidance(fluoroscopy images available in the radiology Department ) ( To target the facet joint between Bilateral L4-5 , and L5-S1 )#1st ANESTHESIA: moderate sedation with intravenous Versed 2 mg and Fentanyl 50 mcg.(sedation start time 07:03 ,end time 07:15 ) EBL: Minimal COMPLICATION: None PROCEDURE INDICATION: Chronic low back pain secondary to Facet arthropathy unresponsive to conservative treatment. PROCEDURE DESCRIPTION: the patient was seen and identified in the preop holding area , risks and benefits and possible complications of the procedure and alternative were discussed with the patient, and the patient agreed to proceed with the procedure and signed the consent and vital signs monitored during the procedure and fluoroscopy was used to maximize the benefit and accuracy of the needle placement, and sedation was given to decrease patient anxiety, patient was taken to the procedure room and placed in prone position vital signs monitored in the back prepped with chlorhexidine X3 then under strict sterile technique using a right oblique fluoroscopy ,the junction of the transverse process and the superior articulating process of the right L3 , L4 , and L5 vertebra which corresponding to the fluoroscopy image of the eye of the Sacha dog on the block side for the medial branches and subsequently , after local infiltration of skin and subcu tissuies with Ropivacaine 0.5 % , one mL at each level ,then 22-gauge Quincke-type needles , 3 needle was used , each one of them placed at the junction of the base of the transverse process and the superior articular process at the appropriate level, and the needle was advanced until the periosteum contacted, needle placement confirmed with AP oblique and lateral view and after appropriate needle placement confirmed, and after negative aspiration for heme and CSF and there was no paresthesia 1-1/2 mL of Ropivacaine 0.5% , then half mL injected at each level after negative aspiration the needle subsequently removed and the same procedure repeated for the left side at left side at L3 , L4 and L5 levels. At the end of the procedure and the needles removed and a bandage applied after the skin was cleaned the cleaning solution patient taken to recovery room in stable condition and monitors in the recovery room for 20-30 minutes and discharged home in stable condition after discharge criteria met and patient will follow up with the pain clinic in 2-4 weeks
[2024-06-25 07:29] VITALS: RESP 16
[2024-06-25 07:39] VITALS: BP 124/79; PULSE 68
--- NOTE | 2024-06-25 08:12 | FL ---
EXAMINATION TYPE: FL guided pain mgmt statistic DATE OF EXAM: 06/25/2024 CLINICAL INDICATION: Female, 63 years old with history of Naveed Lumbar Facet; PHH, TECHNIQUE: Fluoroscopy. COMPARISON: None. FINDINGS: Fluoroscopic guidance was provided during pain relief procedure performed by Dr. Loera . A total of 24.0 seconds of fluoroscopic time was utilized during the procedure and 4 spot images a re acquired. Images acquired shows needle localization at several levels in the lumbar spine. Multil evel mild degenerative changes are present. Total DAP: 0.51728 mGym2. IMPRESSION: As Above. [facility], , 06/25/2024 8:10 AM
== END 2024-06-25 08:03 | disposition home or self-care (01) ==
LOC: ORPAIN 05:57
PROVIDERS: ATTEND Specialist
DX: M47.816 Spondylosis without myelopathy or radiculopathy, lumbar region (principal); M51.362 Other intervertebral disc degeneration, lumbar region with discogenic back pain and lower extremity pain
CPT/HCPCS: 64493; 64494; J2250; J2405; J3010; J2795; 99152

== ENCOUNTER → 2024-07-18 | Outpatient (CLI) | payer MEDICARE ==
[2024-07-18 08:29] VITALS: BP 114/80; PULSE 76; RESP 16
--- NOTE | 2024-07-18 15:13 | P.PAINPG ---
PQRS Measure Charge Sheet Comment: HISTORY OF PRESENT ILLNESS: A 63 yr old female w at side presents today w severe and chronic LBP> 1 yr secondary to radiculopathy, spondylosis and facet arthropathy without myelopathy for evaluation s/p BL MBB L4-L5/ L5-S1 #1. Pt states she experienced 80 % pain relief x 24 hrs s/p procedure. Pt states pain level is provoked at 6 /10 in intensity, constant, localized in the lumbar spine, predominantly axial, achy in character without shooting pain. Pain is provoked by standing/ walking for periods > 15 min. Pain is alleviated by PT x 6 wks which ended in Feb 2024, physician guided home exercises 4-5 times weekly since Feb 2024, medications, heat, ice, repositioning and rest . Interventional procedures include RAMESH L4-L5 x1 (Apr 2024), L Knee Injections, BL MBB L3-L5 x1 Medifcations include Tramadol, Ibu REVIEW OF ORGAN SYSTEMS: CONSTITUTIONAL: No fevers or chills. No recent weight loss. NEUROLOGICAL: + numbness and tingling along the distal extremities. No seizure disorders or headaches. MUSCULOSKELETAL: + pain PSYCHIATRIC: Denies current depression or suicidal thoughts. Physical Examinations : Constitutional : Cooperative , not in acute distress . Neurologic : Cranial nerve II to XII intact. No focal neurological deficits. Psychiatric : alert & oriented x 3. Matching mood & appropriate affect. Judgment & insight intact. Musculoskeletal : Cervical Spine Motor strength in the deltoid and biceps: Normal right side. Normal Left side Motor strength biceps and the wrist extensors: Normal right side . Normal left side Motor strength in the triceps muscle: Normal right side. Normal left side Deep tendon reflexes: Normal at the biceps. Normal at Brachioradialis. Normal at triceps Vertebral body tenderness to deep palpa tion over Cervical facet loading test: positive bilaterally Spurling test: positive bilaterally Neck distraction test: positive bilaterally Any sign: positive bilaterally Lumbar spine Motor strength lower extremities ,thigh and legs 5/5 Right side , 5/5 Left side Deep tendon reflexes : Normal Knee Jerk. Normal Ankle Jerk Vertebral body tenderness over L4 Hammond Test positive Lumbar facet Loading Test: positive Right / positive Left L4-L5/ L5-S1 Range of motion of the lumbar spine Flexion 30 degrees, extension 10 degrees Straight Leg Raise test: Left/ Right positive at < 35 degrees Jw test: positive right / positive left. Severe tenderness over the Sacroiliac joint on the Right / Left sides Gaenslen test: positive bilaterally Seated flexion test: positive bilaterally. Sacral spine : Severe tenderness over the Sacroiliac joint: right side / left side Range of motion: Flexion of the lumbar spine <60 degrees Range of motion: Extension of the lumbar spine <20 degrees Gaenslen's Test positive Jw test: positive right side / left side Thigh Thrust Test Sacral Thrust Test Imaging: MRI non contrast lumbar spine from 03/08/24 reviewed Assessment/ Plan : L4-L4 anterolisthesis Recommendation of BL MBB L4-L5/ L5-S1 #2. Risks, benefits of procedure discussed and patient verbalized understanding. Admits to anti- coagulant use or medical history of diabetes. Protocol for discontinuation/ continuation of medications oswald procedure discussed. Minimal anesthesia including Fentanyl and Versed if clinically indicated. All questions answered. I have spent greater than 30 minutes on patient care today. Dr Loera was available by phone for the evaluation of this patient. The time was used to review the medical records including relevant urine studies and Prescription history (MAPs), review of the available imaging, evaluation and examination of the patient, coordination of care with the medical staff and if applicable referring physicians, as well as creation of the medical record PQRS Narrative: Hx Alcohol Use (MH) No Home Medications: Ambulatory Orders Cetirizine HCl/Pseudoephedrine [Zyrtec-D Tablet] 1 each PO DAILY 01/18/19 Ibuprofen 800 mg PO TID PRN 01/18/19 Omeprazole [PriLOSEC] 20 mg PO AC-BRKFST 01/18/19 Montelukast [Singulair] 10 mg PO HS 11/02/21 Ascorbic Acid [Vitamin C] 1,000 mg PO BID 02/07/23 Cholecalciferol [Vitamin D3 (25 Mcg = 1000 Iu)] 25 mcg PO DAILY 02/07/23 Cranberry Fruit Extract [Cranberry] 500 mg PO DAILY 02/07/23 Turmeric Root Extract [Turmeric] 500 mg PO DAILY 02/07/23 Controlled Substance Measures - Controlled Substance Measures Is patient prescribed a controlled substance at discharge?: No
== END ==
LOC: PNWHC3 07:59
PROVIDERS: ATTEND Specialist
DX: M43.16 Spondylolisthesis, lumbar region (principal); M47.26 Other spondylosis with radiculopathy, lumbar region; G89.29 Other chronic pain; M54.50 Low back pain, unspecified; E11.9 Type 2 diabetes mellitus without complications
CPT/HCPCS: 99211

== ENCOUNTER → 2024-07-24 | Outpatient (CLI) | payer MEDICARE ==
--- NOTE | 2024-07-24 16:55 | US ---
EXAMINATION TYPE: US kidneys/renal and bladder DATE OF EXAM: 07/24/2024 COMPARISON: Abdominal ultrasound 11/30/2023 CLINICAL INDICATION: Female, 63 years old with history of R30.0 DYSURIA; Pain limitations due to jasmyne l gas. TECHNIQUE: Grayscale imaging of the bilateral kidneys and urinary bladder: FINDINGS: EXAM MEASUREMENTS: Right Kidney: 9.7 x 4.4 x 3.2 cm Left Kidney: 9.1 x 4.1 x 3.7 cm Right Kidney: No hydronephrosis or masses seen Left Kidney: No hydronephrosis or masses seen Bladder: anechoic Bilateral Jets seen: no There is no evidence for hydronephrosis at this point in time. No nephrolithiasis is seen. No khushboo s are identified. Corticomedullary differentiation is maintained bilaterally. The urinary bladder is anechoic. IMPRESSION: No hydronephrosis or nephrolithiasis. [facility], , 07/24/2024 4:53 PM
== END | disposition home or self-care (01) ==
LOC: RADUSWWP 16:07
PROVIDERS: ATTEND Family Medicine
DX: R30.0 Dysuria (principal)
CPT/HCPCS: 76770

== ENCOUNTER 2024-08-02 06:49 | Day surgery (SDC) | payer MEDICARE ==
[2024-07-31 09:44] VITALS: BMI 32.3
[2024-08-02 07:34] VITALS: RESP 16; TEMP 97.2
[2024-08-02] MEDS: IV FLUID CONTINUATION 1,000 ML IV ONE ×2 (07:34→08:17)
[2024-08-02] MEDS: LACTATED RINGERS 1,000 ML IV SCH (07:35)
[2024-08-02] MEDS ORDERED: MIDAZOLAM 2 MG/2 ML VIAL ONE (08:04)
[2024-08-02] MEDS ORDERED: ROPIVACAINE 5 MG/ML 30 ML VIAL ONE (08:04)
--- NOTE | 2024-08-02 08:15 | P.PCN ---
Date of Procedure: 08/02/24 Description of Procedure: Pre- and Post-operative Diagnosis: Lumbar facet arthropathy, and lumbar spondylosis without myelopathy. Procedure: #2 Diagnostic Medial Branch Block at bilateral Lumbar 4/5 and #2 diagnostic dorsal ramus block at Lumbar 5/ sacral ala levels (total 4 levels) Surgeon: Osman Anderson Anesthesia: Local: 1% Lidocaine, IV sedation : Versed 2 mg. Sedation supervision timings: [id number] Complications: None EBL: None Specimen removed: None Fluoroscopic image: Saved to patient electronic medical records. Indications for Procedure: The patient is well known to pain clinic for his chronic low back pain management. The lumbar facet loading test was positive with a clinical diagnosis of lumbar facet arthropathy. Failed with conservative therapy. Came here for interventional help for better pain relief. Procedure and Findings: The patient was seen and examined. The written informed consent was obtained after explaining the risks, benefits and alternatives of the procedure to the patient. The patient was brought to the procedure room and was placed in the prone position on the operating table table. A pillow was placed under the abdomen to reduce lumbar lordosis. Standard anesthesia monitoring was done through out the procedure. The skin preparation was done with ChloraPrep, and draping was done in usual sterile fashion. Sterile technique was observed throughout the procedure. Under fluoroscopic guidance, right the Lumbar 4, 5 and Sacral ala levels were identified in the AP view. For lumbar L4, and L5 levels the targeting area of superior articular process, and close to the most medial and superior aspect of transverse process identified, marked. 1ml of 1% Lidocaine was used with a 25 gauge needle to achieve adequate local anesthesia of the skin and subcutaneous tissue at each level. A 23 gauge 3.5 inch spinal needle was placed and advanced targeting area which was close to the most medial and superior aspect of the transverse process. For Lumbar 5/ sacral ala level, fluoroscope was used in the anteroposterior view, and the needle tip was placed at the superior and most medial part of sacral ala close to the superior articular process. A bony contact was obtained and needle tip position was confirmed at anteroposterior view. No paresthesia was noted. A negative aspiration was confirmed. 1 ml solution per level was injected, the block solution containing 6 ml of 0.5% rop ivacaine preservative-free solution . The needles were removed intact. Entire procedure repeated on the left side. Lumbar area was cleaned and bandages were applied. Disposition : The patient tolerated the procedure very well. The patient was transferred to the recovery room and remained stable until discharged home. The patient was given detailed discharge instructions for infection, bleeding, and increased pain at the injection site, and was advised to seek immediate medical attention should significant side effects develop. The patient will be scheduled with Pain Clinic within 2-4 weeks for LUmbar RFTC procedure if it's helpful.
[2024-08-02 08:33] VITALS: BP 121/77; PULSE 66
--- NOTE | 2024-08-02 09:31 | FL ---
EXAMINATION TYPE: FL guided pain mgmt statistic DATE OF EXAM: 08/02/2024 FLUOROSCOPY bilat lumbar facets, 5sec fl time, DAP=.[id number] [facility], Workstation: [id number], 08/02/2024 9:29 AM
== END 2024-08-02 08:48 | disposition home or self-care (01) ==
LOC: ORPAIN 06:49
DX: M47.816 Spondylosis without myelopathy or radiculopathy, lumbar region (principal); G89.29 Other chronic pain
CPT/HCPCS: 64493; 64494; J2250; J2795; 99152

== ENCOUNTER → 2024-08-26 | Outpatient (CLI) | payer MEDICARE ==
[2024-08-26 08:51] VITALS: BP 108/82; PULSE 70; RESP 17
--- NOTE | 2024-08-28 07:30 | P.PAINPG ---
PQRS Measure Charge Sheet Comment: HISTORY OF PRESENT ILLNESS: A 63 yr old female w at side presents today w severe and chronic LBP> 1 yr secondary to radiculopathy, spondylosis and facet arthropathy without myelopathy for evaluation s/p BL MBB L4-L5/ L5-S1 #2. Pt states she experienced 90 % pain relief x 8 hrs s/p procedure. Pt states pain level is provoked at 6 /10 in intensity, constant, localized in the lumbar spine, predominantly axial, achy in character without shooting pain. Pain is provoked by standing/ walking for periods > 15 min. Pain is alleviated by PT x 6 wks which ended in Feb 2024, physician guided home exercises 4-5 times weekly since Feb 2024, medications, heat, ice, repositioning and rest . Interventional procedures include RAMESH L4-L5 x1 (Apr 2024), L Knee Injections, BL MBB L3-L5 x2 Medifcations include Tramadol, Ibu REVIEW OF ORGAN SYSTEMS: CONSTITUTIONAL: No fevers or chills. No recent weight loss. NEUROLOGICAL: + numbness and tingling along the distal extremities. No seizure disorders or headaches. MUSCULOSKELETAL: + pain PSYCHIATRIC: Denies current depression or suicidal thoughts. Physical Examinations : Constitutional : Cooperative , not in acute distress . Neurologic : Cranial nerve II to XII intact. No focal neurological deficits. Psychiatric : alert & oriented x 3. Matching mood & appropriate affect. Judgment & insight intact. Musculoskeletal : Cervical Spine Motor strength in the deltoid and biceps: Normal right side. Normal Left side Motor strength biceps and the wrist extensors: Normal right side . Normal left side Motor strength in the triceps muscle: Normal right side. Normal left side Deep tendon reflexes: Normal at the biceps. Normal at Brachioradialis. Normal at triceps Vertebral body tenderness to deep palpation over Cervical facet loading test: positive bilaterally Spurling test: positive bilaterally Neck distraction test: positive bilaterally Any sign: positive bilaterally Lumbar spine Motor strength lower extremities ,thigh and legs 5/5 Right side , 5/5 Left side Deep tendon reflexes : Normal Knee Jerk. Normal Ankle Jerk Vertebral body tenderness over L4 Hammond Test positive Lumbar facet Loading Test: positive Right / positive Left L4-L5/ L5-S1 Range of motion of the lumbar spine Flexion 30 degrees, extension 10 degrees Straight Leg Raise test: Left/ Right positive at < 35 degrees Jw test: positive right / positive left. Severe tenderness over the Sacroiliac joint on the Right / Left sides Gaenslen test: positive bilaterally Seated flexion test: positive bilaterally. Sacral spine : Severe tenderness over the Sacroiliac joint: right side / left side Range of motion: Flexion of the lumbar spine <60 degrees Range of motion: Extension of the lumbar spine <20 degrees Gaenslen's Test positive Jw test: positive right side / left side Thigh Thrust Test Sacral Thrust Test Imaging: MRI non contrast lumbar spine from 03/08/24 reviewed Assessment/ Plan : L4-L4 anterolisthesis Recommendation of BL RFA L4-L5/ L5-S1. Risks, benefits of procedure discussed and patient verbalized understanding. Admits to anti- coagulant use or medical history of diabetes. Protocol for discontinuation/ continuation of medications oswald procedure discussed. Minimal anesthesia including Fentanyl and Versed if clinically indicated. All questions answered. I have spent greater than 30 minutes on patient care today. Dr Loera was available by phone for the evaluation of this patient. The time was used to review the medical records including relevant urine studies and Prescription history (MAPs), review of the available imaging, evaluation and examination of the patient, coordination of care with the medical staff and if applicable referring physicians, as well as creation of the medical record - Pain Location Lower Back Non-Pharmacological Interventions: Heat, Ice Pharmacological Interventions: Medication, Topical Medication PQRS Narrative: Hx Alcohol Use (MH) No Home Medications: Ambulatory Orders Cetirizine HCl/Pseudoephedrine [Zyrtec-D Tablet] 1 each PO DAILY 01/18/19 Ibuprofen 800 mg PO TID PRN 01/18/19 Montelukast [Singulair] 10 mg PO HS 11/02/21 Ascorbic Acid [Vitamin C] 1,000 mg PO BID 02/07/23 Cholecalciferol [Vitamin D3 (25 Mcg = 1000 Iu)] 25 mcg PO DAILY 02/07/23 Cranberry Fruit Extract [Cranberry] 500 mg PO DAILY 02/07/23 Turmeric Root Extract [Turmeric] 500 mg PO DAILY 02/07/23 Pantoprazole Sodium 20 mg PO DAILY 07/31/24 Controlled Substance Measures - Controlled Substance Measures Is patient prescribed a controlled substance at discharge?: No
== END ==
LOC: PNWHC3 07:55
PROVIDERS: ATTEND Specialist
DX: M43.16 Spondylolisthesis, lumbar region (principal)
CPT/HCPCS: 99212

== ENCOUNTER 2024-09-19 06:01 | Day surgery (SDC) | payer MEDICARE ==
[2024-09-19] MEDS: IV FLUID CONTINUATION 1,000 ML IV ONE ×2 (06:29→06:30)
[2024-09-19] MEDS: LACTATED RINGERS 1,000 ML IV SCH (06:30)
[2024-09-19 06:36] VITALS: RESP 16; TEMP 97.6
[2024-09-19] MEDS ORDERED: fentaNYL (PF) 50 MCG/ML 2 ML AMP ONE (07:09)
[2024-09-19] MEDS ORDERED: MIDAZOLAM 2 MG/2 ML VIAL ONE (07:09)
[2024-09-19] MEDS ORDERED: ONDANSETRON 4 MG/2 ML VIAL ONE (07:09)
[2024-09-19] MEDS ORDERED: ROPIVACAINE 5 MG/ML 30 ML VIAL ONE (07:09)
--- NOTE | 2024-09-19 07:55 | P.PCN ---
Description of Procedure: Preprocedure diagnosis. 1. Lumbar spondylosis with facet joint arthropathy without myelopathy. 2. Lumbar degenerative disc disease. Procedure diagnosis. 1. Lumbar spondylosis with facet joint arthropathy without myelopathy. Space 2. Lumbar degenerative disc disease. Procedure.Bilateral radiofrequency thermocoagulation L3, L4 and L5 medial branch, with fluoroscopic guidance (fluoroscopy images are available in the radiology department) (to Denervate the facet joint at bilateral L4- 5 and L5-S1 levels) Anesthesia. Moderate sedation with intravenous Versed 2 mg and fentanyl 100 g and local infiltration with Lidocaine. Continuous pulse OX,BP,EKG and verbal communication was maintained with patient. Time. Start 0709. Stop 0742. EBL minimal. Procedure indication. The patient with low back pain secondary to lumbar facet arthropathy who he had more than 50% relief of her pain with previous diagnostic lumbar medial branch block with local anesthetics.The patient was seen and identified in the preoperative area. Risks: Benefits, complications, including but not limited to risk of infection, bleeding, ALLERGIC reaction to the medications and no complete pain relief and alternatives were discussed with the patient, the patient admitted to proceed with the procedure and signed the consent. Procedure description/technique. Patient was taken to the OR and timeout was completed. The patient was placed in prone position on the procedure table. The lumbar area was prepped and draped in the usual sterile fashion. After injecting 5 ml of 1% Lidocaine subcutaneously,using AP and then oblique, lateral view of fluoroscopy, 18-gauge 100 mm radiofrequency cannula with a 10 mm active tip was advanced and guided by fluoroscopy at the junction of supirior articular process with RIGHT ala of the sacrum, transverse process of L4&L5. Each site then underwent positive sensory testing with 50 Hz and 0-1 V and negative motor testing at 2.5 Hz and 0-3 V with local stimulation but no radicular symptoms down the leg. Thereafter each sites underwent radiofrequency thermocoagulation at 80C for 90 seconds after injecting 1 mL of preservative- free 0.5% ropivacaine. Repeat radiofrequency ablation was done at each points after rotating the needle 180 with same setting. This same procedure was repeated twice on the LEFT side at the junction of superior articular process with ala of sacrum,transverse process of L4, L5 with the same settings after positive sensory,negative motor stimulation and inf iltration of 1.0 ml 5% Ropivacaine at each site . RF needles were taken out. At the end of the procedure the skin was cleansed and Band-Aids were applied. Disposition patient tolerated the procedure well. No complication. She was placed in supine position and transferred to the recovery area in stable condition for observation and was discharged home from recovery room after meeting discharge criteria. Discharge instructions given to the patient by the staff. The patient were examined prior to discharge the patient will schedule a follow-up in the clinic in 2-4 weeks.
[2024-09-19 08:07] VITALS: BP 110/68; PULSE 62
--- NOTE | 2024-09-19 08:35 | FL ---
Naveed Lumbar Rad Freq 52sec fluoro time .[id number] [facility], , 09/19/2024 8:33 AM
== END 2024-09-19 08:23 | disposition home or self-care (01) ==
LOC: ORPAIN 06:01
PROVIDERS: ATTEND Pain Medicine Interventional Pain Medicine
DX: M47.816 Spondylosis without myelopathy or radiculopathy, lumbar region (principal); M51.369 Other intervertebral disc degeneration, lumbar region without mention of lumbar back pain or lower extremity pain; Z79.1 Long term (current) use of non-steroidal anti-inflammatories (NSAID)
CPT/HCPCS: 64636 ×2; 64635; J2250; J2405; J3010; J2795; 99152; 99153

== ENCOUNTER → 2024-10-07 | Outpatient (CLI) | payer MEDICARE ==
[2024-10-07 08:22] VITALS: BP 132/86; PULSE 67; RESP 16; TEMP 97.3
--- NOTE | 2024-10-07 16:40 | P.PAINPG ---
PQRS Measure Charge Sheet Comment: HISTORY OF PRESENT ILLNESS: A 64 yr old female w at side presents today w severe and chronic LBP> 1 yr secondary to radiculopathy, spondylosis and facet arthropathy without myelopathy for evaluation s/p BL RFA L4-L5/ L5-S1. Pt states she experienced >50 % pain relief s/p procedure. Pt states pain level is provoked at 4-6 /10 in intensity, constant, localized in the lumbar spine, predominantly axial, achy in character without shooting pain. Pain is provoked by standing/ walking for periods > 15 min. Pain is alleviated by PT x 6 wks which ended in Feb 2024, physician guided home exercises 4-5 times weekly since Feb 2024, medications, heat, ice, repositioning and rest . Interventional procedures include RAMESH L4-L5 x1 (Apr 2024), L Knee Injections, BL RFA L3-L5 (09/19/24) Medifcations include Tramadol, Ibu REVIEW OF ORGAN SYSTEMS: CONSTITUTIONAL: No fevers or chills. No recent weight loss. NEUROLOGICAL: + numbness and tingling along the distal extremities. No seizure disorders or headaches. MUSCULOSKELETAL: + pain PSYCHIATRIC: Denies current depression or suicidal thoughts. Physical Examinations : Constitutional : Cooperative , not in acute distress . Neurologic : Cranial nerve II to XII intact. No focal neurological deficits. Psychiatric : alert & oriented x 3. Matching mood & appropriate affect. Judgment & insight intact. Musculoskeletal : Cervical Spine Motor strength in the deltoid and biceps: Normal right side. Normal Left side Motor strength biceps and the wrist extensors: Normal right side . Normal left side Motor strength in the triceps muscle: Normal right side. Normal left side Deep tendon reflexes: Normal at the biceps. Normal at Brachioradialis. Normal at triceps Vertebral body tenderness to deep palpation over Cervical facet loading test: positive bilaterally Spurling test: positive bilaterally Neck distraction test: positive bilaterally Any sign: positive bilaterally Lumbar spine Motor strength lower extremities ,thigh and legs 5/5 Right side , 5/5 Left side Deep tendon reflexes : Normal Knee Jerk. Normal Ankle Jerk Vertebral body tenderness over L4 Hammond Test positive Lumbar facet Loading Test: positive Right / positive Left L4-L5/ L5-S1 Range of motion of the lumbar spine Flexion 30 degrees, extension 10 degrees Straight Leg Raise test: Left/ Right positive at < 35 degrees Jw test: positive right / positive left. Severe tenderness over the Sacroiliac joint on the Right / Left sides Gaenslen test: positive bilaterally Seated flexion test: positive bilaterally. Sacral spine : Severe tenderness over the Sacroiliac joint: right side / left side Range of motion: Flexion of the lumbar spine <60 degrees Range of motion: Extension of the lumbar spine <20 degrees Gaenslen's Test positive Jw test: positive right side / left side Thigh Thrust Test Sacral Thrust Test Imaging: MRI non contrast lumbar spine from 03/08/24 reviewed Assessment/ Plan : L4-L4 anterolisthesis Recommendation of medication management, but may benefit from RAMESH L2-L3 in a later time. Will discontinue Tramadol. Opiate/ narcotic agreement signed 10/07/24. [place] 5/325gm #60 w RF. Use, side effects adverse reactions, safe storage discussed. All questions answered. I have spent greater than 30 minutes on patient care today. Dr Loera was available by phone for the evaluation of this patient. The time was used to review the medical records including relevant urine studies and Prescription history (MAPs), review of the available imaging, evaluation and examination of the patient, coordination of care with the medical staff and if applicable referring physicians, as well as creation of the medical record - Pain Location Bilateral Lower Back Non-Pharmacological Interventions: Ice, Inactivity, Physical Therapy Pharmacological Interventions: Block, Epidural, PRN Medication PQRS Narrative: Hx Alcohol Use (MH) No Home Medications: Ambulatory Orders Cetirizine HCl/Pseudoephedrine [Zyrtec-D Tablet] 1 each PO DAILY 01/18/19 Ibuprofen 800 mg PO TID PRN 01/18/19 Montelukast [Singulair] 10 mg PO HS 11/02/21 Ascorbic Acid [Vitamin C] 1,000 mg PO BID 02/07/23 Cholecalciferol [Vitamin D3 (25 Mcg = 1000 Iu)] 25 mcg PO DAILY 02/07/23 Cranberry Fruit Extract [Cranberry] 500 mg PO DAILY 02/07/23 Turmeric Root Extract [Turmeric] 500 mg PO DAILY 02/07/23 Pantoprazole Sodium 20 mg PO DAILY 07/31/24 Controlled Substance Measures - Controlled Substance Measures Is patient prescribed a controlled substance at discharge?: Yes When asked, does pt state using other controlled substances?: No If prescribed controlled substance>3 days was MAPS reviewed?: Yes If Rx opioid, was Start Talking consent form obtained?: Yes Was information provided regarding opioid addiction?: Yes
== END ==
LOC: PNWHC3 07:46
PROVIDERS: ATTEND Specialist
DX: M43.16 Spondylolisthesis, lumbar region (principal); M47.26 Other spondylosis with radiculopathy, lumbar region
CPT/HCPCS: 99211